=== PATIENT | female | born 1990 | race Caucasian/White ===

== ENCOUNTER 2020-09-11 20:23 | Emergency (ER) | payer OTHER, SELFPAY ==
[2020-09-11 20:35] VITALS: BP 108/76; PULSE 130; RESP 18; TEMP 37.9; O2SAT 97
[2020-09-12] MEDS: HYDROcodone/acetaminophen (*CRX) 5-325 MG TABLET 1 TAB PO (00:46)
[2020-09-12 01:11] LABS: Anion Gap 9 mmol/L (8-16); Blood Urea Nitrogen 13 mg/dL (7-17); Carbon Dioxide 25 mmol/L (22-30); Chloride 102 mmol/L (98-107); Estimated CRCL calculation 111 ml/min; Estimated Glomerular Filt Rate > 60; Glucose 154 mg/dL (65-105); Potassium 3.3 mmol/L (3.4-5.0); Sodium 136 mmol/L (137-145)
[2020-09-12 01:12] LABS: Basophils Percent Auto 0.2 % (0.2-1.2); Hematocrit 37.9 % (37.0-47.0); Immature Granulocyte Absolute 0.09 K/mm3 (0.00-0.031); Immature Granulocyte Percent A 0.5 % (0-0.5); Immature Platelet Fraction Pct 13.8 % (0.9-11.2); Lymphocytes Absolute Auto 1.12 K/mm3 (0.9-3.2); Lymphocytes Percent Auto 6.7 % (18.3-44.2); Mean Corpuscular HGB Conc 34.3 g/dl (32-36); Mean Corpuscular Hemoglobin 28.8 pg (26-34); Mean Platelet Volume 13.3 fl (7.4-10.4); Monocytes Percent Auto 6.1 % (2.6-8.5); Neutrophils Absolute Auto 14.5 K/mm3 (1.3-6.7); Neutrophils Percent Auto 86.5 % (45.5-73.1); Platelet Count Result 154 k/mm3 (150-375); Red Blood Count 4.51 M/mm3 (4.2-5.4); Red Cell Distribution Width 12.3 % (11.5-14.5); White Blood Count 16.7 K/mm3 (4.5-10.0)
--- NOTE | 2020-09-12 01:22 | ED.WOUNDLAC ---
HPI - Wound/Laceration General Chief Complaint: Wound/Laceration Stated Complaint: Fever -poss staph infect/cyst Time Seen by Provider: 09/11/20 23:35 Source: patient Mode of arrival: ambulatory Limitations: no limitations History of Present Illness HPI narrative: 30-year-old with no major medical problems here with complaints of small abscess on the anterior abdominal wall. Patient states that she has seen her primary doctor received intramuscular antibiotic injection however the pain got worse this afternoon and she is here in the ER. She was also given antibiotic prescription however she has not started. She denies any nausea or vomiting. She states that she had a fever this afternoon about [address] Place: home Related Data Allergies Allergy/AdvReac Type Severity Reaction Status Date / Time No Known Allergies Allergy Unverified 03/05/18 21:47 Review of Systems Review of Systems: All systems reviewed & are unremarkable except as noted in HPI and below Constitutional: Constitutional: Reports no additional constitutional complaints Eyes: Eyes: Reports no additional eye complaints ENT: Reports system reviewed and no additional complaints, except as documented Cardiovascular: Cardiovascular: Reports no additional cardiovascular complaints Respiratory: Respiratory: Reports no additional respiratory complaints Gastrointestinal: Gastrointestinal: Reports no additional gastrointestinal complaints Musculoskeletal: Musculoskeletal: Reports no additional musculoskeletal complaints Integumentary/Breasts: Skin/Breast: Reports as per HPI Neurologic: Reports system reviewed and no additional complaints, except as documented Psychiatric: Psychiatric: Reports no additional psychiatric complaints Exam Narrative: Exam Narrative: GENERAL: Well-appearing, well-nourished, and in no acute distress. HEAD: Normocephalic, atraumatic. EYES: PERRLA and EOMI.. NECK: Supple. CHEST: Clear to auscultation. No respiratory distress. HEART: Regular rate and rhythm. No murmur heard. Normal peripheral pulses. ABDOMEN: Soft, nontender, nondistended, normal active bowel sounds. a small area about 3 cms diameter is present on the left upper abd , hard and tender on palpation EXTREMITIES: Normal range of motion. No edema. SKIN: Warm, dry, no rash. NEURO: No focal deficits. Alert and oriented x3. PSYCH: Normal mood and affect. Course Course Emergency Course: Inform patient about the lab work. Advised her to cloth picker medication from the pharmacy and start. Meanwhile I will give her some for pain. Also recommended warm compress to the area. Vital Signs Vital signs: Vital Signs Temperature 37.9 C H 09/11/20 20:35 Pulse Rate 130 H 09/11/20 20:35 Respiratory Rate 18 09/11/20 20:35 Blood Pressure 108/76 09/11/20 20:35 Pulse Oximetry 97 09/11/20 20:35 Temperature 37.9 C H 09/11/20 20:35 Pulse Rate 130 H 09/11/20 20:35 Respiratory Rate 18 09/11/20 20:35 Blood Pressure 108/76 09/11/20 20:35 Pulse Oximetry 97 09/11/20 20:35 MDM - Wound/Laceration Lab Data Result diagrams: 09/12/20 00:49 09/12/20 00:49 Labs: Lab Results 09/12/20 09/12/20 Range/Units 00:49 00:49 WBC 16.7 H (4.5-10.0) K/mm3 RBC 4.51 (4.2-5.4) M/mm3 Hgb 13.0 (12.0-15.0) g/dL Hct 37.9 (37.0-47.0) % MCV 84.0 (80-100) fl MCH 28.8 (26-34) pg MCHC 34.3 (32-36) g/dl RDW 12.3 (11.5-14.5) % Plt Count 154 (150-375) k/mm3 MPV 13.3 H (7.4-10.4) fl Immature Gran % (Auto) 0.5 (0-0.5) % Neut % (Auto) 86.5 H (45.5-73.1) % Lymph % (Auto) 6.7 L (18.3-44.2) % Bryan % (Auto) 6.1 (2.6-8.5) % Eos % (Auto) 0.0 (0-4.4) % Baso % (Auto) 0.2 (0.2-1.2) % Lymph # (Auto) 1.12 (0.9-3.2) K/mm3 Bryan # (Auto) 1.0 H (0.1-0.6) K/mm3 Eos # (Auto) 0.0 (0-0.3) K/mm3 Baso # (Auto) 0.0 (0.0-0.1) K/mm3 Abs Immat Gran (auto) 0.09 H (0.00-0.031) K/mm3 Absolute Neuts (auto
[2020-09-12 02:07] VITALS: BP 110/74; PULSE 101; RESP 18
== END 2020-09-12 02:11 | disposition home or self-care (01) ==
PROVIDERS: Emergency Provider Family Medicine; PCP Family Medicine Sports Medicine
DX: L03.311 Cellulitis of abdominal wall (principal)
CPT/HCPCS: 36415; 80048; 85025; 85055; 87040; 99283; A9270

== ENCOUNTER 2021-02-24 13:19 | Emergency (ER) | payer OTHER, SELFPAY ==
[2021-02-24 13:40] VITALS: BP 121/75; PULSE 102; RESP 18; TEMP 37.4; O2SAT 98
--- NOTE | 2021-02-24 13:47 | ED.SKABFB ---
HPI - Skin/Abscess/Foreign Bdy General Chief complaint: Skin/Abscess/Foreign Body Stated complaint: right elbow cellulitis Source: patient Mode of arrival: ambulatory Limitations: no limitations History of Present Illness HPI narrative: Patient is a 30-year-old female who presents complaining of right elbow pain. She reports possible insect bite to right forearm, she reports awaking this a.m. with redness, warmth and tenderness to right elbow as well as small area of drainage. She denies injury. She reports having abscesses multiple times in the past. She denies significant medical history. She denies all other complaints at this time. Patient has not taken [id number]-ujjolrr medications prior to arrival. MD complaint: abscess/boil Related Data Home Medications Medication Instructions Recorded Confirmed phentermine mg 02/24/21 Allergies Allergy/AdvReac Type Severity Reaction Status Date / Time No Known Allergies Allergy Unverified 03/05/18 21:47 Review of Systems Review of Systems: CONSTITUTIONAL: Denies fever, chills, or sweats. EYES: Denies visual changes, redness, or discharge. ENT: Denies rhinorrhea, congestion, sore throat, or otalgia. CARDIOVASCULAR: Denies chest pain, palpitations, or edema. RESPIRATORY: Denies cough or dyspnea. GASTROINTESTINAL: Denies abdominal pain, nausea, vomiting, or diarrhea. GENITOURINARY: Denies dysuria or hematuria. SKIN: Reports warmth and redness to right elbow MUSCULOSKELETAL: Denies back pain, joint pain, or myalgia. NEUROLOGIC: Denies headache, numbness, dizziness, or weakness. PSYCHIATRIC: Denies anxiety or depression. [facility] Past Medical History Medical History Dystocia Surgical History Surgical History H/O dilation and curettage Family History Family History (Updated 02/24/21 @ 13:49 by CHARANJIT Scott) Other Autoimmune disease Cancer Diabetes mellitus Heart disease Hypertension Social History Social History (Updated 02/24/21 @ 13:49 by CHARANJIT Scott) Smoking status: Never smoker Alcohol intake: never Substance use: never Living arrangements: with family Comments At the time of signature, I have reviewed and agree with nursing past medical, surgical, social, and family history unless otherwise noted. Please see nursing chart for further information. There is no relevant family history pertinent to the presenting complaint. Exam Narrative: GENERAL: Well-appearing, well-nourished, and in no acute distress. HEAD: Normocephalic, atraumatic. EYES: EOMI. No redness or drainage. Conjunctiva are normal. ENT: Mucous membranes pink and moist. NECK: AROM. Supple. No lymphadenopathy. CHEST: No respiratory distress. HEART: Regular rate and rhythm. EXTREMITIES: Normal range of motion. SKIN:. Erythema, edema and warmth to right elbow and forearm, approximate 1 cm area with puncture and discharge noted, wound culture NEURO: No focal deficits. Alert and oriented x3. Gait steady. PSYCH: Normal affect. No signs of depression or anxiety. MDM - Skin/Abscess/Foreign Bdy MDM Narrative Medical decision making narrative: Patient most likely has cellulitis to her right area, discussed with patient possible MRSA. Wound cultured at this time. Patient treated with antibiotics. Patient is aware the need to follow-up with her PCP in 3 to 5 days if symptoms persist. Discussed with patient red flags and when to be further evaluated in the emergency department. Patient is stable for discharge home with outpatient follow-up as directed. Differential Diagnosis Differential diagnosis: Likely abscess of skin or subcutaneous tissue, cellulitis, insect bites and impetigo Critical Care Time Critical Care Time Critical Care Time: No Discharge Plan Discharge Clinical Impression: Cellulitis Patient Disposition: Home, Self-Care
== END 2021-02-24 14:10 | disposition home or self-care (01) ==
PROVIDERS: Emergency Provider Nurse Practitioner
DX: L03.113 Cellulitis of right upper limb (principal)
CPT/HCPCS: 87070; 87147; 87186; 87205; 99213; G0463

== ENCOUNTER 2021-05-07 18:34 | Emergency (ER) | payer OTHER, SELFPAY ==
[2021-05-07 18:43] VITALS: BP 137/88; PULSE 95; RESP 95; TEMP 36.7; O2SAT 100
--- NOTE | 2021-05-07 18:44 | ED.SKABFB ---
HPI - Skin/Abscess/Foreign Bdy General Chief complaint: Skin/Abscess/Foreign Body Stated complaint: Infection on Face Time Seen by Provider: 05/07/21 18:44 Source: patient, RN notes reviewed and old records reviewed Mode of arrival: ambulatory Limitations: no limitations History of Present Illness HPI narrative: 31-year-old female presents to the [facility] with complaints of cellulitis to the left chin area. States on Friday, 2 days ago pulled an ingrown hair and several hours later it became inflamed woke up this morning it is red, warm. No fluctuant site. Related Data Allergies Allergy/AdvReac Type Severity Reaction Status Date / Time No Known Allergies Allergy Unverified 05/07/21 18:41 Review of Systems Review of Systems: All systems reviewed & are unremarkable except as noted in HPI and below Constitutional: Constitutional: Reports no additional constitutional complaints, Denies chills and Denies fever(s) Eyes: Eyes: Reports no additional eye complaints ENT: Reports system reviewed and no additional complaints, except as documented Cardiovascular: Cardiovascular: Reports no additional cardiovascular complaints Respiratory: Respiratory: Reports no additional respiratory complaints Gastrointestinal: Gastrointestinal: Reports no additional gastrointestinal complaints Genitourinary: Genitourinary: Reports no additional female genitourinary complaints Musculoskeletal: Musculoskeletal: Reports no additional musculoskeletal complaints Integumentary/Breasts: Skin/Breast: Reports as per HPI and Reports erythema (Left chin area) Neurologic: Reports system reviewed and no additional complaints, except as documented Psychiatric: Psychiatric: Reports no additional psychiatric complaints Allergic/Immunologic: Allergic/Immunologic: Reports no additional allergic/immunologic complaints PMFSH Past Medical History Medical History Dystocia Surgical History Surgical History H/O dilation and curettage Family History Family History Other Autoimmune disease Cancer Diabetes mellitus Heart disease Hypertension Social History Social History Smoking status: Never smoker Alcohol intake: never Substance use: never Comments At the time of my signature, I reviewed and agree with the nursing past medical, surgical, social, and family history. There is no relevant family history pertinent to the patient complaint.. Exam Const: General: healthy appearing, no acute distress and alert Nutritional Appearance: well nourished Orientation/consciousness: patient oriented x3 HENMT: Head: normal to inspection Ears: external ears normal, TM's normal bilaterally and EAC's normal Eyes: Conjunctivae: conjunctivae normal Pupils: Equal, round and reactive pupils present Neck: Neck: normal visual inspection, no lymphadenopathy and no meningeal signs Chest: Chest palpation & inspection: normal inspection of the chest Resp: Effort & Inspection: normal respiratory effort Auscultation: clear to auscultation bilaterally Cardio: Rate: regular rate Rhythm: regular rhythm Skin: Other: 3 x 3 and half centimeter indurated area without fluctuance just below the left side of lip into chin area. Areas of peeling skin. Neuro: General: patient oriented x3, moves all extremities, no meningeal signs and no focal motor deficits Cranial nerves: Yes Nystagmus not present Speech: normal speech Gait exam (Neuro): Normal gait present Extrem: General: normal to inspection Psych: Appearance: grossly normal and well kempt Mental Status: mental status grossly normal Affect: normal affect Attitude: cooperative Thought content: Yes Normal thought content present Course Course Emergency Course: Long discussion with patient, concern for fac
[2021-05-07 18:46] VITALS: BP 137/88; PULSE 95; RESP 95; TEMP 36.7; O2SAT 100
== END 2021-05-07 18:56 | disposition home or self-care (01) ==
PROVIDERS: Emergency Provider Nurse Practitioner; PCP Family Medicine Sports Medicine
DX: L03.211 Cellulitis of face (principal)
CPT/HCPCS: 99213; G0463

== ENCOUNTER 2025-03-14 14:29 | Emergency (ER) | payer OTHER, SELFPAY ==
--- NOTE | ~2025-03-14 | XR_ITS ---
EXAMINATION: XR finger 2nd LT min 2V DATE: 03/14/2025 14:52 INDICATION: Left second finger injury TECHNIQUE: Dorsal palmar, lateral and 2 oblique views of the left second digit were obtained COMPARISON: None FINDINGS: Small minimally distracted likely volar plate avulsion fracture fragment at the palmar base of the second middle phalanx. No other fractures identified. Alignment is otherwise normal. Minimal to mild osteoarthritis at the first carpometacarpal, first metacarpophalangeal and a few interphalangeal joints. IMPRESSION: 1. Small minimally distracted volar plate avulsion fracture fragment at the palmar base of the second middle phalanx. Reviewed, dictated and finalized at location A. IMPRESSION: 1. Small minimally distracted volar plate avulsion fracture fragment at the pal mar base of the second middle phalanx.
--- NOTE | 2025-03-14 14:40 | ED.UPPEXIN ---
HPI - Extremity Injury (Upper) General Chief Complaint: Extremity Injury, Upper Stated Complaint: L hand finger jammed Time Seen by Provider: 03/14/25 14:45 Source: patient Mode of arrival: ambulatory Limitations: no limitations History of Present Illness HPI narrative: Maryellen is a 34-year-old female patient presenting to the clinic today with complaints of left index finger injury. 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 States the finger jammed backwards. Is having pain over the MCP and PIP joints of the left index finger. Does have some swelling over the MCP joint. Is unable to flex or extend her finger due to pain and swelling. Rates pain 2/10 currently. Has not taken any medications for her symptoms. Related Data Home Medications ?Medication ?Instructions ?Recorded ?Confirmed ?Last Taken ?Type levonorgestrel (Mirena) 1 device intrauterine ONCE 05/14/23 07/25/23 Unknown History Allergies Allergy/AdvReac Type Severity Reaction Status Date / Time No Known Allergies Allergy Verified 03/14/25 14:49 Review of Systems Review of Systems: Pertinent positives per HPI. Patient denies any fever, chills, rash, headache, visual changes, dizziness, cough, runny nose, sore throat, shortness of breath, chest pain, palpitations, nausea, vomiting, diarrhea, constipation, abdominal pain, or any urinary issues. [facility] Past Medical History Medical History Dystocia Encounter for insertion of mirena IUD 12/04/2017 Surgical History Surgical History H/O gynecological procedure Dx lap, chromopertubation IUI - 2018 H/O dilation and curettage Family History Family History Other Autoimmune disease Cancer Diabetes mellitus Heart disease Hypertension Social History Social History Smoking status: Never smoker Alcohol intake: current Substance use: never Current Housing: Decline to Answer Concerned About Future Housing: Decline to Answer Difficulty Paying Gas/Electric Bills: Decline to Answer Difficulty Paying for Meds: Decline to Answer Currently Unemployed: Decline to Answer Education: Decline to Answer Difficulty w/ Childcare or Family Care: Decline to Answer Living arrangements: with family Occupation/Education: occupation Gender identity (if verbalized by the patient): Female Sexual Orientation (if Verbalized by the Patient): Straight or Heterosexual Comments At the time of my signature, I reviewed and agree with the nursing past medical, surgical, social, and family history. There is no relevant family history pertinent to the patient complaint. Exam Narrative: General: Well-developed, well nourished, in no apparent distress Head: Normocephalic, atraumatic. Cardio: Regular rate and rhythm, s1 and s2 normal, no murmur appreciated. Resp: Clear to auscultation bilaterally, no rhonchi, rales, wheezing or rubs. Musculoskeletal: No deformity, tenderness and swelling to the left index finger MCP and PIP- tender to palpation, unable to flex or extend the finger due to pain and swelling, muscle strength strong and equal, peripheral pulse strong, no edema, no cyanosis, normal gait and station Course Course Emergency Course: Portions of this record may have been created with voice recognition software. Level of Care: Express Care Visit Vital Signs Vital signs: Vital Signs Temperature 36.8 C 03/14/25 14:41 Pulse Rate 68 03/14/25 14:41 Respiratory Rate 03/14/25 14:41 Blood Pressure 120/82 03/14/25 14:41 Pulse Oximetry 99 03/14/25 14:41 Oxygen Delivery Room Air 03/14/25 14:41 Temperature 36.8 C 03/14/25 14:41 Pulse Rate 68 03/14/25 14:41 Respiratory Rate 03/14/25 14:41 Blood Pressure 120/82 03/14/25 14:41 Pulse Oximetry 99 03/14/25 14:41 Oxygen Delivery Room Air 03/14/25 14:41 Vital signs reviewed MDM - Extremity Injury (Upper) MDM Narrative Medical decision making narrative: At the time of visit patient is resting comfortably on the exam table. Patient appears to be nontoxic. complaints of left index finger injury. 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 States the finger jammed backwards. Is having pain over the MCP and PIP joints of the left index finger. Does have some swelling over the MCP joint. Is unable to flex or extend her finger due to pain and swelling. Rates pain 2/10 currently. Has not taken any medications for her symptoms. On exam patient has swelling over the MCP joint/P IP joint of the left index finger. Diagnostics: X-ray shows a small minimally distracted volar plate avulsion fracture of the middle Flores aspect of the 2nd finger Plan: Patient has an avulsion fracture of the left 2nd finger. Recommend follow-up with Dr. Carlisle as discussed-call his office today to schedule appointment. Wear metal finger splint as discussed. Supportive measures were discussed with the patient and they voiced understanding discharge instructions and agrees to treatment plan. Return precautions reviewed Differential Diagnosis Differential diagnosis: Likely finger sprain, dislocation of finger and other (Finger fracture, contusion, soft tissue injury) Imaging Data Radiologist's impression: [place] [address] [place] [address] XRay Report Signed Patient: Maryellen Serrano : 1990 MR#: [id number] Age: 34 Acct:[id number] Loc: [facility] ADM Date: 03/14/25Attending Dr: Ordering Physician: Billy Mcwilliams APRN Date of Service: 03/14/25 Procedure(s): XR finger 2nd LT min 2V Accession Number(s): [id number] cc: Billy Mcwilliams APRN; Charo, Jj Nguyen MD~ EXAMINATION: XR finger 2nd LT min 2V DATE: 03/14/2025 14:52 INDICATION: Left second finger injury TECHNIQUE: Dorsal palmar, lateral and 2 oblique views of the left second digit were obtained COMPARISON: None FINDINGS: Small minimally distracted likely volar plate avulsion fracture fragment at the palmar base of the second middle phalanx. No other fractures identified. Alignment is otherwise normal. Minimal to mild osteoarthritis at the first carpometacarpal, first metacarpophalangeal and a few interphalangeal joints. IMPRESSION: 1. Small minimally distracted volar plate avulsion fracture fragment at the palmar base of the second middle phalanx. Reviewed, dictated and finalized at location A. Please be advised this is a medical document. It is intended for [id number] communication. It is written in medical language and may contain unfamiliar abbreviations or verbiage. Medical documents are intended to carry relevant information, facts as evident, and the clinical opinion of the practitioner at the time of the encounter. This report may have been done utilizing a voice recognition system. Attempts have been made to correct errors. However, there may be uncorrected grammatical, spelling, and recognition errors present. The file time of this note does not necessarily represent the time of service. Dictated By: Pardeep Rogers MD 03/14/25 1457 Signed By: <Electronically signed by Pardeep Rogers MD in OV> 03/14/25 1459 Discharge Plan Discharge Clinical Impression: Avulsion fracture of middle phalanx of finger Qualifiers: Encounter type: initial encounter Fracture type: closed Qualified Code(s): S62.629A - Displaced fracture of middle phalanx of unspecified finger, initial encounter for closed fracture Patient Disposition: Home Condition: Stable Instructions: Antibiotic Form, Finger Fracture (ED), Avulsion Fracture (ED) Additional Instructions: X-ray shows a small minimally distracted volar plate avulsion fracture at the palmar base of the 2nd middle phalanx Rest, ice, elevate, and wear metal finger splint as discussed Tylenol/motrin for pain as discussed Follow up with your PCP if symptoms persist more than 1 week. Follow-up with - call office today to schedule an appointment Patient Language: Singaporean Prescriptions: No Action Mirena 21 mcg/24 hours (8 yrs) 52 mg intrauterine device 1 device intrauterine ONCE Rx Instructions: as a single dose Follow-up/Referrals: Nicky Carlisle MD [Physician, Plastic Surgery] - 1 Day Referral Note: Small minimally distracted volar plate avulsion fracture at the palmar base of the 2nd middle phalanx Clinical Impression: Avulsion fracture of middle phalanx of finger Charo,Jj Nguyen MD [Primary Care Provider, [facility]] Time of Disposition: 15:06 Quality NIHSS Nursing Documentation ED NIHSS nursing documentation: reviewed/agree
[2025-03-14 14:41] VITALS: BP 120/82; PULSE 68; RESP 20; TEMP 36.8; O2SAT 99
== END 2025-03-14 15:15 | disposition home or self-care (01) ==
PROVIDERS: Emergency Provider Nurse Practitioner Family; PCP Family Medicine Sports Medicine
DX: S62.621A Displaced fracture of middle phalanx of left index finger, initial encounter for closed fracture (principal); Y04.2XXA Assault by strike against or bumped into by another person, initial encounter; Y99.0 Civilian activity done for income or pay
CPT/HCPCS: 29130; 73140; 99214; G0463

== ENCOUNTER 2025-05-30 08:03 | Emergency (ER) | payer OTHER, SELFPAY ==
--- NOTE | ~2025-05-30 | XR_ITS ---
EXAM/PROCEDURE: XR abdomen/kub 1V HISTORY: ureterolithiasis COMPARISON: None available. TECHNIQUE: KUB FINDINGS: Contrast present in both collecting systems with distention of the right renal collecting system consistent with mild to moderately severe hydronephrosis. Ureteral stone is not clearly identified on this KUB exam. Urinary bladder is unremarkable. Scattered loops of gas dilated bowel with no grossly distended loops of bowel or large amount of free air. Moderate amount of stool extends to the cecum. IUD is present in the mid pelvis. IMPRESSION: Mild to moderately severe right-sided hydronephrosis. Nonspecific bowel gas pattern. Reviewed, dictated and finalized at location A. R MACHINE OPERATOR IMPRESSION: Mild to moderately severe right-sided hydronephrosis. Nonspecific bowel gas alex leyva
--- NOTE | ~2025-05-30 | CT_ITS ---
EXAMINATION: CT abdomen pelvis w con DATE: 05/30/2025 09:20 INDICATION: Right lower quadrant abdominal pain TECHNIQUE: Computed tomography (CT) of the abdomen and pelvis was performed with 100 mL Omnipaque-350 intravenous contrast. Automated exposure control and iterative reconstruction technique were employed. The dose-length product was 834.46 mGy-cm. COMPARISON: None FINDINGS: Minimal dependent atelectasis in bilateral lower lobes. Heart size is normal. No pericardial or pleural effusion. Tiny calcified gallstone in the dependent aspect of the normal-appearing gallbladder with no gallbladder dilation, wall thickening or pericholecystic inflammatory stranding to suggest acute cholecystitis. Liver, spleen, pancreas, bilateral adrenal glands are normal. Bilateral nephrolithiasis with 3 mm nonobstructing stone in a middle calyx of the left kidney 5 mm and 1 mm nonobstructing stones in the right kidney with additional obstructing 4 mm stone at the proximal right ureter with mild right hydronephrosis. No other ureteral stones identified on the left or right. Bladder and bilateral adnexa are unremarkable. T-shaped IUD in expected position within the normal anteverted uterus. Bowels including the appendix are normal. No free intraperitoneal gas or fluid. No pathologically enlarged abdominal or pelvic lymphadenopathy. Mild thoracic and lumbar spondylosis. IMPRESSION: 1. Bilateral nephrolithiasis with obstructing 4 mm proximal right ureteral stone with mild right hydronephrosis. 2. Cholelithiasis. Reviewed, dictated and finalized at location A. L SPONGE MAKING MACHINE OPERATOR IMPRESSION: 1. Bilateral nephrolithiasis with obstructing 4 mm proximal right ureteral ston e with mild right hydronephrosis. 2. Cholelithiasis.
[2025-05-30 08:07] VITALS: BP 135/93; PULSE 69; RESP 18; TEMP 36.6; O2SAT 98
--- NOTE | 2025-05-30 08:12 | ED_ITS ---
HPI - Abdominal Pain General Chief Complaint: Abdominal Pain Stated Complaint: right flank pain Time Seen by Provider: 05/30/25 08:06 History of Present Illness HPI narrative: Pt presents with right flank pain radiating to rlq since early this morning. Pt says the pain is constant in back but the pain shooting to her RLQ is intermittent. Pt is nauseated but not vomiting. Pt has no prior history of this. Pt denies urinary symptoms or fever. Related Data Home Medications ?Medication ?Instructions ?Recorded ?Confirmed ?Last Taken ?Type levonorgestrel (Mirena) 1 device intrauterine ONCE 1 07/14/22 07/25/23 Unknown History Allergies Allergy/AdvReac Type Severity Reaction Status Date / Time No Known Allergies Allergy Verified 05/30/25 08:13 Review of Systems 2 Review of Systems: All systems reviewed & are unremarkable except as noted in HPI and below PMFSH Past Medical History Medical History Dystocia Encounter for insertion of mirena IUD 12/04/2017 Surgical History Surgical History H/O gynecological procedure Dx lap, chromopertubation IUI - 2017 H/O dilation and curettage Family History Family History Other Autoimmune disease Cancer Diabetes mellitus Heart disease Hypertension Social History Social History Smoking status: Never smoker Alcohol intake: current Substance use: never Current Housing: Decline to Answer Concerned About Future Housing: Decline to Answer Difficulty Paying Gas/Electric Bills: Decline to Answer Difficulty Paying for Meds: Decline to Answer Currently Unemployed: Decline to Answer Education: Decline to Answer Difficulty w/ Childcare or Family Care: Decline to Answer Living arrangements: with family Occupation/Education: occupation Gender identity (if verbalized by the patient): Female Sexual Orientation (if Verbalized by the Patient): Straight or Heterosexual Exam 2 Const: General: healthy appearing and no acute distress Nutritional Appearance: well nourished Orientation/consciousness: patient oriented x3 Limitations: no limitations Neck: Neck: normal visual inspection and no meningeal signs Resp: Effort & Inspection: normal respiratory effort Auscultation: clear to auscultation bilaterally Cardio: Rate: regular rate Rhythm: regular rhythm GI: GI Palp: Yes Soft to palpation and Yes Tenderness to palpation present (GI) (rlq) Auscultation: normal bowel sounds Back/Spine/Pelvis: Back: CVA tenderness (right) Skin: General skin exam: normal color Rashes: no rashes Wounds: no wounds Neuro: General: patient oriented x3, moves all extremities, no meningeal signs and no focal motor deficits Speech: normal speech Extrem: General: normal to inspection and no clubbing, cyanosis or edema Psych: Mental Status: mental status grossly normal Affect: normal affect Attitude: cooperative Course Vital Signs Vital signs: Vital Signs Temperature 97.9 F 05/30/25 08:07 Pulse Rate 69 05/30/25 08:07 Respiratory Rate 18 05/30/25 08:07 Blood Pressure 135/93 H 05/30/25 08:07 Pulse Oximetry 98 05/30/25 08:07 Oxygen Delivery Room Air 05/30/25 08:07 Temperature 97.9 F 05/30/25 08:07 Pulse Rate 88 05/30/25 10:54 Respiratory Rate 15 05/30/25 10:54 Blood Pressure 119/77 05/30/25 10:54 Pulse Oximetry 99 05/30/25 10:54 Oxygen Delivery Room Air 05/30/25 08:07 [facility] Narrative Medical decision making narrative: pt has kidney stone history but has tenderness on exam in rlq so appy a concern as well. will get contrast CT and labs and ua and uhcg and treat pain and nausea. Pain controlled in ed. has prox kidney stone. home on flomax zofran and norco Differential Diagnosis Differential Diagnosis: ddx includes but not limited to kidney stone pyelonephritis, uti, appendicitis, diverticlulitis sbo Lab Data [facility] Lab Attestation statement: I personally reviewed the patient's lab results. 05/30/25 08:32 05/30/25 08:32 Labs: Lab Results 05/30/25 05/30/25 Range/Units 08:32 08:39 WBC 7.5 (4.5-10.0) K/mm3 RBC 4.67 (4.2-5.4) M/mm3 Hgb 13.3 (12.0-15.0) g/dL Hct 39.3 (37.0-47.0) % MCV 84.2 (80-100) fl MCH 28.5 (26-34) pg MCHC 33.8 (32-36) g/dl RDW 12.6 (11.5-14.5) % Plt Count 167 (150-375) k/mm3 MPV 12.9 H (7.4-10.4) fl Immature Gran % (Auto) 0.3 (0-0.5) % Neut % (Auto) 77.4 H (45.5-73.1) % Lymph % (Auto) 16.2 L (18.3-44.2) % [place] % (Auto) 5.2 (2.6-8.5) % Eos % (Auto) 0.5 (0-4.4) % Baso % (Auto) 0.4 (0.2-1.2) % Lymph # (Auto) 1.22 (0.9-3.2) K/mm3 [place] # (Auto) 0.4 (0.1-0.6) K/mm3 Eos # (Auto) 0.0 (0-0.3) K/mm3 Baso # (Auto) 0.0 (0.0-0.1) K/mm3 Abs Immat Gran (auto) 0.02 (0.00-0.031) K/mm3 Absolute Neuts (auto) 5.8 (1.3-6.7) K/mm3 Absolute Nucleated RBC 0.000 (0.0-0.012) K/mm3 Nucleated RBC % 0.0 (0.0-0.2) % Sodium 138 (137-145) mmol/L Potassium 3.8 (3.4-5.0) mmol/L Chloride 109 H (98-107) mmol/L Carbon Dioxide 23 (22-30) mmol/L Anion Gap 6 (4-12) mmol/L BUN 12 (7-17) mg/dL Creatinine 0.86 (0.7-1.0) mg/dL Estim Creat Clear Calc 85 ml/min Estimated GFR > 60 (59 - ) Glucose 104 (65-110) mg/dL Lactic Acid 1.0 (0.7-2.0) mmol/L Calcium 9.0 (8.4-10.2) mg/dL Total Bilirubin 1.1 (0.2-1.3) mg/dL AST 24 (14-36) U/L ALT 23 (6-35) U/L Alkaline Phosphatase 58 (38-126) U/L Total Protein 7.5 (6.3-8.2) g/dL Albumin 4.4 (3.5-5.1) g/dL Lipase 81 (23-300) U/L Urine Color Yellow (Yellow) Urine Appearance Cloudy H (Clear) Urine pH 7.0 (5.0-9.0) Ur Specific [place] 1.025 (1.001-1.035) Urine Protein 2+ H (Negative) mg/dL Urine Glucose (UA) Negative (Negative) mg/dL Urine Ketones Trace H (Negative) mg/dL Ur Blood (Man) 3+ H (Negative) Urine Nitrate Negative (Negative) Urine Bilirubin Negative (Negative) Urine Urobilinogen 1.0 (<2.0) mg/dL Add Ur Microanalysis Reviewed Leukocyte Esterase Rfl 1+ H (Negative) LOLY/UL Urine RBC >100 H (0-2) /hpf Urine WBC 6-10 H (0-3) /hpf Ur Squamous Epith Cells Many H (Few) /hpf Urine Bacteria 2+ H /hpf Urine Casts 0-2 POC Urine HCG, Qual Negative (Negative) Imaging Data Attestation: I personally reviewed and interpreted this imaging study as follows: My impression: right prox ureteral stone Radiologist's impression: ITS Impressions Abdomen/Pelvis CT 05/30/25 09:25 IMPRESSION: 1. Bilateral nephrolithiasis with obstructing 4 mm proximal right ureteral stone with mild right hydronephrosis. 2. Cholelithiasis. Abdomen X-Ray 05/30/25 10:31 IMPRESSION: Mild to moderately severe right-sided hydronephrosis. Nonspecific bowel gas pattern. Discharge Plan Discharge Clinical Impression: Ureterolithiasis Patient Disposition: Home Condition: Improved Instructions: Antibiotic Form, Kidney Stones (ED) Patient Language: Ukrainian Prescriptions: New tamsulosin 0.4 mg capsule 0.4 mg PO DAILY Qty: 10 0RF ondansetron 4 mg tablet,disintegrating 4 mg PO Q8H PRN (Reason: nausea and vomiting) Qty: 14 0RF hydrocodone-acetaminophen 5-325 mg tablet 1 tablet PO Q4H PRN (Reason: pain) Qty: 14 0RF No Action Mirena 21 mcg/24 hours (8 yrs) 52 mg intrauterine device 1 device intrauterine ONCE Rx Instructions: as a single dose Follow-up/Referrals: Jonatohn Pizarro MD [Physician, Urology] Charo,Jj Nguyen MD [Primary Care Provider, Family Practice]
[2025-05-30] MEDS: SODIUM CHLORIDE 0.9% IV 1,000 ML 999 ML IV CONT (08:38)
[2025-05-30] MEDS: ONDANSETRON INJ 4 MG/2 ML VIAL IV PUSH (08:39)
[2025-05-30] MEDS: HYDROmorphone HCL INJ (*CRX) 1 MG/ML SYR IV PUSH (08:39)
[2025-05-30 08:46] LABS: Hematocrit 39.3 % (37.0-47.0); Hemoglobin 13.3 g/dL (12.0-15.0); Immature Granulocyte Percent A 0.3 % (0-0.5); Lymphocytes Absolute Auto 1.22 K/mm3 (0.9-3.2); Mean Corpuscular HGB Conc 33.8 g/dl (32-36); Mean Corpuscular Hemoglobin 28.5 pg (26-34); Mean Corpuscular Volume 84.2 fl (80-100); Nucleated Red Blood Cells Absolute Auto 0.000 K/mm3 (0.0-0.012); Nucleated Red Blood Cells Perc 0.0 % (0.0-0.2); Platelet Count Result 167 k/mm3 (150-375); Red Blood Count 4.67 M/mm3 (4.2-5.4); White Blood Count 7.5 K/mm3 (4.5-10.0)
[2025-05-30 09:02] LABS: BEDSIDEPREGUCG Negative (Negative)
[2025-05-30 09:02] LABS: Alanine Aminotransferase 23 U/L (6-35); Albumin Level 4.4 g/dL (3.5-5.1); Alkaline Phosphatase 58 U/L (38-126); Anion Gap 6 mmol/L (4-12); Aspartate Amino Transferase 24 U/L (14-36); Bilirubin,Total 1.1 mg/dL (0.2-1.3); Blood Urea Nitrogen 12 mg/dL (7-17); Calcium 9.0 mg/dL (8.4-10.2); Carbon Dioxide 23 mmol/L (22-30); Chloride 109 mmol/L (98-107); Estimated CRCL calculation 85 ml/min; Estimated Glomerular Filt Rate > 60; Glucose 104 mg/dL (65-110); Lipase 81 U/L (23-300); Potassium 3.8 mmol/L (3.4-5.0); Sodium 138 mmol/L (137-145); Total Protein 7.5 g/dL (6.3-8.2)
[2025-05-30 09:05] LABS: Add Urine Microscopic? YES; Appearance Urine Cloudy (Clear); Glucose Urine UA Negative (Negative); Leukocyte Esterase Ur 1+ LEU/UL (Negative); Need Manual Microscopic Reviewed; Nitrate Urine Negative (Negative); Non Pathogenic Casts 0-2; Specific Grav Ur 1.025 (1.001-1.035)
[2025-05-30 09:45] VITALS: BP 139/85; PULSE 77; RESP 16; O2SAT 99
[2025-05-30 10:16] VITALS: BP 132/89; PULSE 78; RESP 15; O2SAT 97
[2025-05-30 10:54] VITALS: BP 119/77; PULSE 88; RESP 15; O2SAT 99
== END 2025-05-30 10:55 | disposition home or self-care (01) ==
PROVIDERS: Emergency Provider Emergency Medicine; PCP Family Medicine Sports Medicine
DX: N13.2 Hydronephrosis with renal and ureteral calculous obstruction (principal)
CPT/HCPCS: 36415; 74018; 74177; 80053; 81001; 81025; 83605; 83690; 85025; 96361; 96374; 96375; 99284; J1171; J2405; J7030; Q9967